=== PATIENT | female | born 1980 | race Caucasian/White ===

== ENCOUNTER 2017-08-15 20:58 | Emergency (ER) | payer MEDICAID ==
[2017-08-15 21:14] VITALS: O2SAT 97
--- NOTE | 2017-08-15 21:46 | CPEKG ---
Heart Rate: 80 RR Interval: 750 P-R Interval: 156 QRSD Interval: 84 QT Interval: 364 QTC Interval: 420 P [place]: 11 QRS [place]: 21 T Wave [place]: 23 EKG Severity - ABNORMAL ECG - EKG Impression: SINUS RHYTHM EKG Impression: ABNORMAL Q SUGGESTS ANTERIOR INFARCT Electronically Signed By: Joanie Martinez 16-Aug-2017 00:06:33
--- NOTE | 2017-08-15 22:28 | EDPHY ---
H & P Stated Complaint: chest pressure, uti symptoms Source: Patient Exam Limitations: No limitations - Personal History LMP (Females 10-55): 1-7 Days Ago - Medical/Surgical History Hx Asthma: No Hx Chronic Respiratory Disease: No Hx Diabetes: Yes Hx Cardiac Disease: No Hx Renal Disease: No Hx Cirrhosis: No Hx Alcoholism: No Hx HIV/AIDS: No Hx Splenectomy or Spleen Trauma: No Other PMH: diabetic - Social History Smoking Status: Never smoked Time Seen by Provider: 08/15/17 21:21 HPI/ROS: HPI: This is a 37-year-old female who presents with Chief Complaint: Multiple complaints Location: sinus, chest, Quality: Pain Duration: 3-7 days Signs and Symptoms: No fever, no nausea, no vomiting, no abdominal pain, no neck stiffness, no headache Timing: Daily Severity: Moderate Context: Patient and her significant other recently moved to [facility] and have been staying in shelters. She presents to the emergency room this evening with multiple complaints including sinus and nasal congestion for the last several days. She complains that she is unable to blow her nose at the areas very dry here. She denies sinus pressure/headache. She also complains of a cough for the last few days that is nonproductive in nature. Denies fever/ chills/chest pain/palpitations. She is concerned because she has been staying in shelters among other people who are sick. And then she also complains of burning with urination for 1-2 days. Denies vaginal bleeding/vaginal discharge. LMP was 1-7 days ago. Modifying Factors: She has not tried any [id number] medications Comment: ROS: see HPI Constitutional: No fever, no chills, no weight loss Eyes: No blurred vision Respiratory: No shortness of breath, + cough Cardiovascular: No chest pain Gastrointestinal: No nausea, no vomiting, no diarrhea Genitourinary: No dysuria Extremities: No myalgias Neurologic: No weakness, no numbness Skin: No rashes Hematologic: No bruising, no bleeding MEDICAL/SURGICAL/SOCIAL HISTORY: Medical history: Pre diabetic. Does not take any regular medications. Surgical history: Denies Social history: Homeless. Recently moved to the area. CONSTITUTIONAL: Extremely well-appearing obese white female, awake and alert, no obvious distress HEENT: Atraumatic and normocephalic, PERRL, EOMI. Tympanic membranes clear. Nares patent without rhinorrhea. External nose on the right side shows a dried area without redness/warmth. + excoriation. Oropharynx clear, no exudate and moist pink mucosa. Airway patent. No lymphadenopathy. No meningismus. Cardiovascular: Normal S1/S2, regular rate, regular rhythm, without murmur rub or gallop. PULMONARY/CHEST: Symmetrical and nontender. Clear to auscultation bilaterally. Good air movement. No accessory muscle usage. ABDOMEN: Soft, nondistended, nontender, no rebound, no guarding, no peritoneal signs, no masses or organomegaly. No CVAT. EXTREMITIES: 2/2 pulses, strength 5/5, no deformities, no clubbing, no cyanosis or edema. NEUROLOGICAL: no focal neuro deficits. GCS 15. SKIN: Warm and dry, no erythema. no rash. Good capillary refill. (Carmen Rosas) Constitutional: Initial Vital Signs Temperature (C) 37.2 C 08/15/17 21:11 Heart Rate 88 08/15/17 21:11 Respiratory Rate 20 08/15/17 21:11 Blood Pressure 137/92 H 08/15/17 21:11 O2 Sat (%) 97 08/15/17 21:11 O2 Delivery Mode Room Air O2 (L/minute) 2 Allergies/Adverse Reactions: Sulfa (Sulfonamide Antibiotics) Allergy (Verified 08/15/17 21:11) Home Medications: Medication Instructions Recorded Cephalexin [Keflex (*)] 500 mg PO BID #14 cap 08/15/17 Medical Decision Making ED Course/Re-evaluation: EKG, labs, urinalysis, chest x-ray ordered Vital signs reviewed and unremarkable. Patient is afebrile without any systemic signs. EKG reviewed by attending and shows no acute ischemic changes/arrhythmia 2259: Chest x-ray reviewed via PACs and shows no opacity/effusion/pneumothorax Urinalysis shows infection; sent for urine culture; p.o. Keflex 500 mg given. Sulfa allergy noted. Reviewed labs and grossly unremarkable; no signs of pyelonephritis/sepsis/acute kidney injury/electrolyte imbalance/pulmonary embolism/acute coronary syndrome Based on patient's history; she would benefit from a sleep study to evaluate for obstructive sleep apnea. (Carmen Rosas) Differential Diagnosis: Differential diagnosis includes but is not limited to upper respiratory infection, sinus disease, nasal dryness, urinary tract infection. (Carmen Rosas) Other Provider: PHYSICIAN DOCUMENTATION: The patient was evaluated and managed by the Physician Inside Sales Account Executive. My co- signature indicates that I have reviewed this chart and I agree with the findings and plan of care as documented. I am the secondary supervising physician. (Adrienne Baum) - Data Points Laboratory Results: Laboratory Results 08/15/17 23:03 08/15/17 23:03 Microbiology Results: MICROBIOLOGY 08/15/17 21:32 Urine,Clean Catch Urine Culture - Preliminary Four [place] Types Medications Given: Discontinued Medications Cephalexin HCl (Keflex) 500 mg PO EDNOW ONE PRN Reason: Protocol Stop: 08/15/17 23:01 Last Admin: 08/15/17 23:18 Dose: 500 mg Departure - Departure Disposition: Home, Routine, Self-Care Clinical Impression: Lower urinary tract infection, Nasal dryness Upper respiratory infection Qualifiers: URI type: unspecified viral URI Qualified Code(s): J06.9 - Acute upper respiratory infection, unspecified Condition: Good Instructions: Urinary Tract Infection in Women (ED) Additional Instructions: Chest x-ray does not show any signs of pneumonia or mass. Your labs are completely unremarkable including no signs of a blood clot. Urinalysis shows that she do have a urinary tract infection; please take all medications as prescribed and drink plenty of fluids. You may take [id number] Mucinex as needed for nasal congestion. You may take [id number] nasal saline drops as needed for nasal dryness. Please follow up with pulmonology to obtain a sleep study test to evaluate for obstructive sleep apnea. Referrals: [facility],. [Clinic] - As per Instructions Darell Mcelroy MD [Medical Doctor] - As per Instructions Prescriptions: Cephalexin [Keflex (*)] 500 mg PO BID #14 cap
[2017-08-15] MEDS ORDERED: CEPHALEXIN 500 MG CAP PO ONE (23:00)
[2017-08-15 23:16] LABS: PLATELET COUNT 293 10^3/uL (150-400)
[2017-08-16 02:01] VITALS: BP 122/52; PULSE 85; RESP 20; TEMP 98.2
== END 2017-08-16 00:39 | disposition home or self-care (01) ==
DX: J06.9 Acute upper respiratory infection, unspecified (principal); N39.0 Urinary tract infection, site not specified; B96.89 Other specified bacterial agents as the cause of diseases classified elsewhere; J34.89 Other specified disorders of nose and nasal sinuses; E11.9 Type 2 diabetes mellitus without complications

== ENCOUNTER 2017-08-18 13:09 | Emergency (ER) | payer MEDICAID ==
[2017-08-18 13:41] VITALS: RESP 16
--- NOTE | 2017-08-18 14:38 | EDPHY ---
H & P Smoking Status: Never smoked Time Seen by Provider: 08/18/17 13:51 HPI/ROS: HPI Suicidal thoughts. 37-year-old female with history of bipolar, PTSD and depression. Here on an M1 hold for suicidal thoughts. She is very familiar to our emergency department and staff. She has been seen and evaluated by [facility]. [facility] is to place her for psychiatric admission when she has been medically cleared. She has a history of diabetes is hypertension and a recent history of urinary tract infection. She is homeless currently. She states that she is feeling more depressed and suicidal. She does not have a plan. ROS: Constitutional: No fever, no chills. No weakness. Eyes: No discharge. No changes in vision. ENT: No sore throat. No nasal congestion or rhinorrhea. Respiratory: No cough. No shortness of breath. Cardiac: No chest pain, no palpitations. Gastrointestinal: No abdominal pain, no vomiting, no diarrhea. Genitourinary: No hematuria. No dysuria or increased frequency with urination. Musculoskeletal: No back pain. No neck pain. No myalgias or arthralgias. Skin: No rashes. Neurological: No headache. No focal weakness or altered sensation. Past medical history: As above and includes diabetes, hypertension, hyperlipidemia, PTSD, morbid obesity, homeless, chronic back pain, noncompliance with medications. Social history: Nonsmoker. Here by herself. As above. No alcohol. Denies IV drugs or street drugs. Physical Exam: General Appearance: Alert, emotionally labile. Obese habitus. This patient is responding to questions appropriately and in full sentences. This patient appears well-hydrated and well-nourished. Eyes: Pupils equal and round no pallor or injection. No lid edema, erythema or injection. Respiratory: There are no retractions, lungs are clear to auscultation with good air movement bilaterally. Cardiovascular: Regular rate and rhythm. No murmur. Gastrointestinal: Abdomen is soft and nontender, no masses, bowel sounds normal. No focal tenderness at McBurney's point. No Barahona sign. Neurological: Motor sensory function is grossly intact. Cranial nerves are normal. Gait is normal. Skin: Warm and dry, no rashes. Musculoskeletal: Neck is supple and nontender. Extremities are symmetrical. All joints range without pain or impingement. Psychiatric: No agitation. No depression. Database: EKG: Imaging: Procedures: Emergency department course: Appropriate blood work and urinalysis will be obtained for medical clearance. Vital signs reviewed. She is moderately hypertensive. Vital signs otherwise normal. She is afebrile. Behavioral Health to be notified once the patient is medically cleared. 4:00 p.m., patient's blood work and urine studies reviewed. She is med cleared at this time for placement for psychiatric admission. EPS is aware. 8:30 p.m., the patient's remaining emergency department course under my care has been uneventful. She is awaiting admission to a psychiatric facility. Destination unknown at this time. Care turned over to Dr. Priya Fernández at 9:00 p.m.. Her remaining emergency department course under my care has been uneventful. Differential Diagnosis: The differential diagnosis on this patient includes but is not limited to situational depression, chronic homelessness, suicidal ideation. This represents a partial list of diagnoses considered. These considerations are based on history, physical exam, past history, reassessment and diagnostic testing. (Joanie Martinez) Constitutional: Initial Vital Signs Temperature (C) 36.8 C 08/18/17 13:28 Heart Rate 79 08/18/17 13:28 Respiratory Rate 16 08/18/17 13:28 Blood Pressure 154/74 H 08/18/17 13:28 O2 Sat (%) 98 08/18/17 13:28 O2 Delivery Mode Room Air Allergies/Adverse Reactions: Sulfa (Sulfonamide Antibiotics) Allergy (Verified 08/15/17 21:11) Home Medications: Medication Instructions Recorded Cephalexin [Keflex (*)] 500 mg PO BID #14 cap 08/15/17 Topiramate [Topamax 100MG (*)] 100 mg PO BID #10 tab 08/19/17 Medical Decision Making ED Course/Re-evaluation: 0522AM: Patient has been sleeping. On M1 hold. Pending placement. Patient signed over to Dr. Segura at 7am Shift Change. Pending Placement. ( Amando Tabor) Other Provider: I assumed care of this patient from Dr. Yudith Martinez at 9:00 p.m.. She has been medically cleared, seen by Psychiatry, and we are awaiting placement in inpatient for suicidal ideation. Care will be assumed by Dr. Amando Tabor at 11:00 p.m.. (Priya Fernández) Care assumed at 7:00 a.m. with inpatient psychiatric placement pending for depression and suicidal ideation. 1244: The patient will be transferred to [facility] for inpatient psychiatric hospital bed not available at this facility, in stable condition; accepting physician is Dr. Rowan. (Nish Segura) - Data Points Laboratory Results: Laboratory Results 08/18/17 14:49 08/18/17 14:49 Medications Given: Discontinued Medications Ibuprofen (Motrin) 600 mg PO EDNOW ONE Stop: 08/19/17 10:16 Last Admin: 08/19/17 10:21 Dose: 600 mg Departure - Departure Disposition: Other Psych, Not Adriana Clinical Impression: Suicidal ideation Depression Qualifiers: Depression Type: major depressive disorder Major depression recurrence: single episode Active/Remission status: currently active Major depression episode severity: mild Qualified Code(s): F32.0 - Major depressive disorder, single episode, mild Condition: Good Referrals: NONE *PRIMARY CARE P,. [Primary Care Provider] - As per Instructions Prescriptions: Topiramate [Topamax 100MG (*)] 100 mg PO BID #10 tab
[2017-08-18 14:59] LABS: PLATELET COUNT 288 10^3/uL (150-400)
[2017-08-18 22:55] VITALS: O2SAT 97
[2017-08-19] MEDS ORDERED: TOPIRAMATE 100 MG TAB PO SCH
[2017-08-19 08:23] VITALS: BP 107/72; PULSE 77; TEMP 98.4
[2017-08-19] MEDS ORDERED: IBUPROFEN 200 MG TAB PO ONE (10:15)
== END 2017-08-19 13:39 ==
LOC: EDUNIT#
DX: R45.851 Suicidal ideations (principal); F32.0 Major depressive disorder, single episode, mild; E11.9 Type 2 diabetes mellitus without complications; I10 Essential (primary) hypertension
CPT/HCPCS: 80305; G0480

== ENCOUNTER 2017-08-27 18:09 | Emergency (ER) | payer MEDICAID ==
[2017-08-27] MEDS ORDERED: NS 1,000 ML IV ONE (18:15)
[2017-08-27] MEDS ORDERED: IBUPROFEN 800 MG TAB PO ONE (18:15)
[2017-08-27] MEDS ORDERED: GABAPENTIN 300 MG CAP PO ONE (18:15)
--- NOTE | 2017-08-27 18:24 | EDPHY ---
H & P HPI/ROS: HPI CHIEF COMPLAINT: Headache, off medications HISTORY OF PRESENT ILLNESS: This patient 37-year-old female, morbidly obese, history of hypertension, migraine headaches and seizures, bipolar disorder. She just was recently released from inpatient psychiatric care and was getting dinner tonight at a local senior living however the senior living was closed tonight for overnight stay. Patient ate dinner and then called 911 for global headache. She reports that she developed this headache much earlier today. She attributes the headache to a migraine that she gets when she has offer for seizure medications. She is supposed to be taking gabapentin. She reports to me that she has been off for gabapentin since Friday approximately 5 days. She states when she is off of her gabapentin she gets a global migraine headache. Past Medical History: Hypertension, bipolar disorder, migraine headaches, seizures Past Surgical History: No recent surgery Social History: Homeless denies illicit drugs alcohol tobacco. Family History: ROS REVIEW OF SYSTEMS: A comprehensive 10 point review of systems is otherwise negative aside from elements mentioned in the history of present illness. Exam Constitutional obese, triage nursing summary reviewed, vital signs reviewed, awake/alert. Eyes normal conjunctivae and sclera, EOMI, PERRLA. HENT normal inspection, atraumatic, moist mucus membranes, no epistaxis, neck supple/ no meningismus, no raccoon eyes. Respiratory clear to auscultation bilaterally, normal breath sounds, no respiratory distress, no wheezing. Cardiovascular rate normal, regular rhythm, no murmur, no edema, distal pulses normal. Gastrointestinal soft, non-tender, no rebound, no guarding, normal bowel sounds, no distension, no pulsatile mass. Genitourinary no CVA tenderness. Musculoskeletal no midline vertebral tenderness, full range of motion, no calf swelling, no tenderness of extremities, no meningismus, good pulses, neurovascularly intact. Skin pink, warm, & dry, no rash, skin atraumatic. Neurologic nonfocal normal neurological exam, awake, alert and oriented x 3, AAOx3, moves all 4 extremities equally, motor intact, sensory intact, CN II-XII intact, normal cerebellar, normal vision, normal speech. Psychiatric normal mood/affect. Heme/Lymph/Immune no lymphadenopathy. Differential Diagnosis: Includes but is not limited to in a particular order, migraine headache, tension headache, cluster headache, doubt intracranial bleed given history and clinical exam, infection, need for medications Medical Decision Making: Plan for this patient IV establishment blood draw she is diabetic will check her electrolytes and glucose, CT scan of her head without contrast for headache. Will prescribe her gabapentin ibuprofen for headache control at this time. Will re-evaluate. Her neurological exam is unremarkable. Re-evaluation: CT scan of the head without IV contrast for headache this is negative for acute disease process specifically no bleed. Called to me by Dr. May. 2036: Did re-evaluate this patient this time patient is sleeping. Has no complaints. Feels better in terms of her headache. Her CT scan is unremarkable blood work is normal. She is not hyperglycemic. Electrolytes are appropriate. She is comfortable from being discharged from the emergency room. She does state that she has her medications at a local [facility] I do recommend that she gets these filled tomorrow. Return precautions given. She understands return emergency room if she develops worsening symptoms questions or concerns. Of note here in the emergency room no meningeal signs no stiff neck. Do not feel that she needs any further imaging or lumbar puncture. Source: Patient, EMS - Medical/Surgical History Hx Asthma: No Hx Chronic Respiratory Disease: No Hx Diabetes: Yes Hx Cardiac Disease: No Hx Renal Disease: No Hx Cirrhosis: No Hx Alcoholism: No Hx HIV/AIDS: No Hx Splenectomy or Spleen Trauma: No Other PMH: diabetic, gurd, chronic back issues, bipolar, PTSD, Depression, HTN, high cholesterol, Morbidly Obese. - Social History Smoking Status: Never smoked Constitutional: Initial Vital Signs Temperature (C) 36.5 C 08/27/17 18:37 Heart Rate 72 08/27/17 18:37 Respiratory Rate 16 08/27/17 18:37 Blood Pressure 136/91 H 08/27/17 18:37 O2 Sat (%) 100 08/27/17 18:37 O2 Delivery Mode Room Air Allergies/Adverse Reactions: Sulfa (Sulfonamide Antibiotics) Allergy (Verified 08/15/17 21:11) Home Medications: Medication Instructions Recorded Cephalexin [Keflex (*)] 500 mg PO BID #14 cap 08/15/17 Topiramate [Topamax 100MG (*)] 100 mg PO BID #10 tab 08/19/17 Medical Decision Making - Diagnostics Imaging Results: Imaging Impressions Head CT 08/27/17 18:15 Impression: 1. Chronic inflammatory changes in the left maxillary sinus, without air-fluid level. 2. No source for headache identified. Results called and discussed with Amando Tabor MD, at 08/27/2017 18:46 General information for patients regarding this examination can be found at [employer] [email or web address]. If you have questions or comments about this report, please contact me at (hospital) or [phone] (cell). - Data Points Laboratory Results: Laboratory Results 08/27/17 19:25 08/27/17 19:25 08/27/17 08/27/17 19:25 19:25 WBC 8.56 10^3/uL 10^3/uL (3.80-9.50) RBC 4.29 10^6/uL 10^6/uL (4.18-5.33) Hgb 11.8 g/dL L g/dL (12.6-16.3) Hct 37.3 % L % (38.0-47.0) MCV 86.9 fL fL (81.5-99.8) MCH 27.5 pg L pg (27.9-34.1) MCHC 31.6 g/dL L g/dL (32.4-36.7) RDW 14.8 % % (11.5-15.2) Plt Count 281 10^3/uL 10^3/uL (150-400) MPV 9.8 fL fL (8.7-11.7) Neut % (Auto) 55.2 % % (39.3-74.2) Lymph % (Auto) 33.8 % % (15.0-45.0) Parke % (Auto) 6.7 % % (4.5-13.0) Eos % (Auto) 3.2 % % (0.6-7.6) Baso % (Auto) 0.7 % % (0.3-1.7) Nucleat RBC Rel Count 0.0 % % (0.0-0.2) Absolute Neuts (auto) 4.74 10^3/uL 10^3/uL (1.70-6.50) Absolute Lymphs (auto) 2.89 10^3/uL 10^3/uL (1.00-3.00) Absolute Monos (auto) 0.57 10^3/uL 10^3/uL (0.30-0.80) Absolute Eos (auto) 0.27 10^3/uL 10^3/uL (0.03-0.40) Absolute Basos (auto) 0.06 10^3/uL 10^3/uL (0.02-0.10) Absolute Nucleated RBC 0.00 10^3/uL 10^3/uL (0-0.01) Immature Gran % 0.4 % % (0.0-1.1) Immature Gran # 0.03 10^3/uL 10^3/uL (0.00-0.10) Sodium 138 mEq/L mEq/L (134-144) Potassium 4.0 mEq/L mEq/L (3.5-5.2) Chloride 103 mEq/L mEq/L (97-110) Carbon Dioxide 26 mEq/l mEq/l (22-31) Anion Gap 9 mEq/L mEq/L (8-16) BUN 14 mg/dL mg/dL (7-23) Creatinine 0.7 mg/dL mg/dL (0.6-1.0) Estimated GFR > 60 Glucose 80 mg/dL mg/dL (70-100) Calcium 9.1 mg/dL mg/dL (8.5-10.4) Medications Given: Discontinued Medications Gabapentin (Neurontin) 300 mg PO EDNOW ONE Stop: 08/27/17 18:16 Last Admin: 08/27/17 18:44 Dose: 300 mg Sodium Chloride (Ns) 1,000 mls @ 0 mls/hr IV ONCE ONE PRN Reason: Wide Open Stop: 08/27/17 18:16 Last Admin: 08/27/17 18:44 Dose: 1,000 mls Ibuprofen (Motrin) 800 mg PO EDNOW ONE Stop: 08/27/17 18:16 Last Admin: 08/27/17 18:44 Dose: 800 mg Departure - Departure Disposition: Home, Routine, Self-Care Clinical Impression: Headache Qualifiers: Headache type: unspecified Headache chronicity pattern: acute headache Intractability: intractable Qualified Code(s): R51 - Headache Condition: Good Instructions: Acute Headache (ED) Additional Instructions: 1.Return emergency room if develops worsening symptoms questions or concerns. Referrals: Patient,NotPresent [Unknown] - As per Instructions
[2017-08-27 18:39] VITALS: RESP 16; TEMP 97.7
[2017-08-27 19:34] LABS: % IMMATURE GRANULYOCYTES 0.4 % (0.0-1.1); ABSOLUTE IMMATURE GRANULOCYTES 0.03 10^3/uL (0.00-0.10); ADD DIFF? NO; ADD MORPH? NO; ADD SCAN? NO; ATYPICAL LYMPHOCYTE FLAG 0 (0-99); FRAGMENT RBC FLAG 0 (0-99); HEMATOCRIT 37.3 % (38.0-47.0); HEMOGLOBIN 11.8 g/dL (12.6-16.3); LEFT SHIFT FLG 0 (0-99); LIPEMIA HEMOLYSIS FLAG 80 (0-99); MEAN CELL HEMOGLOBIN 27.5 pg (27.9-34.1); MEAN CELL HEMOGLOBIN CONCENTR. 31.6 g/dL (32.4-36.7); MEAN CELL VOLUME 86.9 fL (81.5-99.8); MEAN PLATELET VOLUME 9.8 fL (8.7-11.7); PLATELET CLUMPS FLAG 0 (0-99); PLATELET COUNT 281 10^3/uL (150-400); RED BLOOD CELL COUNT 4.29 10^6/uL (4.18-5.33); RED CELL DISTRIBUTION WIDTH 14.8 % (11.5-15.2)
[2017-08-27 19:46] LABS: ANION GAP 9 mEq/L (8-16); CALCIUM 9.1 mg/dL (8.5-10.4); CARBON DIOXIDE 26 mEq/l (22-31); CHLORIDE 103 mEq/L (97-110); CREATININE 0.7 mg/dL (0.6-1.0); GLOMERULAR FILTRATION RATE > 60; GLUCOSE 80 mg/dL (70-100); SODIUM 138 mEq/L (134-144)
[2017-08-27 20:48] VITALS: BP 147/85; PULSE 76; O2SAT 98
== END 2017-08-27 20:48 | disposition home or self-care (01) ==
LOC: EDUNIT#
DX: R51 Headache (principal); I10 Essential (primary) hypertension; E11.9 Type 2 diabetes mellitus without complications

== ENCOUNTER 2017-09-07 19:55 | Emergency (ER) | payer MEDICAID ==
--- NOTE | 2017-09-07 20:01 | EDPHY ---
H & P Time Seen by Provider: 09/07/17 20:00 HPI/ROS: CHIEF COMPLAINT: Hemorrhoid HISTORY OF PRESENT ILLNESS: This patient is an obese 37 y/o female arriving via EMS for evaluation of painful hemorrhoids. Onset a painful and enlarged hemorrhoid 2 days ago, gradually increasing since then. She endorses constipation 3 days ago which has since resolved. No abdominal pain. She has no further complaints at this time. REVIEW OF SYSTEMS: A 10 point review of systems was performed and is negative with the exception of the elements mentioned in the history of present illness. Past Medical/Surgical History: 1.Hypertension 2. Diabetes mellitus 3. Bipolar disorder 4. Migraine headaches 5. Seizures 6. PTSD Social History: Currently staying at a assisted. Recently moved to [place]. Significant other at bedside. Denies illicit drug, alcohol, tobacco use. Smoking Status: Never smoked Physical Exam: General Appearance: Alert, pleasant Eyes: Pupils equal and round ENT, Mouth: Mucous membranes moist Neck: Normal inspection Respiratory: Lungs are clear to auscultation Cardiovascular: Regular rate and rhythm Gastrointestinal: Abdomen is soft and non-tender Rectal: Thrombosed hemorrhoid present Neurological: A&O, nonfocal, normal gait Skin: Warm and dry Extremities: Normal inspection Psychiatric: Mood and affect normal Constitutional: Initial Vital Signs Temperature (C) 37.2 C 09/07/17 20:00 Heart Rate 85 09/07/17 20:00 Respiratory Rate 22 H 09/07/17 20:00 Blood Pressure 135/79 H 09/07/17 20:00 O2 Sat (%) 97 09/07/17 20:00 O2 Delivery Mode Room Air Allergies/Adverse Reactions: Sulfa (Sulfonamide Antibiotics) Allergy (Verified 08/15/17 21:11) Home Medications: Medication Instructions Recorded Cephalexin [Keflex (*)] 500 mg PO BID #14 cap 08/15/17 Topiramate [Topamax 100MG (*)] 100 mg PO BID #10 tab 08/19/17 Medical Decision Making Procedures: Procedure: Incision and Drainage of thrombosed hemorrhoid. The patient's hemorrhoid was located on the rectum. Risks, benefits, alternatives discussed with the patient and consent obtained. The area was prepped and draped in sterile fashion. The patient received local anesthesia with 1% lidocaine with epinephrine. The hemorrhoid was incised with a #11 blade and blood clot was expressed. The patient tolerated the procedure well. The procedure was performed by myself. ED Course/Re-evaluation: 37 y/o female presents with 2 day history of rectal pain and hemorrhoid sensation. Rectal exam reveals thrombosed hemorrhoid. Discussed treatment options with patient including conservative home management vs. I&D. Patient prefers to proceed with I&D. See procedure note above. The patient tolerated the procedure well. Plan to d/c in good condition. Follow up and return precautions discussed. The patient is comfortable with this plan. Departure - Departure Disposition: Home, Routine, Self-Care Clinical Impression: Hemorrhoid Qualifiers: Hemorrhoid type: perianal venous thrombosis Qualified Code(s): K64.5 - Perianal venous thrombosis Condition: Good Instructions: Hemorrhoids (ED) Additional Instructions: 1. Sit in a warm bathtub three times per day until your pain resolves. 2. You may take Tylenol or Ibuprofen as directed below as needed for pain relief. 3. Return to the emergency department for worsening pain, drainage, fever, or other worsening of condition. Adult Pain & Fever Control: We recommend Acetaminophen (Tylenol) and Ibuprofen (Motrin,Advil) for pain and fever control. When fever is high or pain severe, both drugs can be used at the same time, but at different intervals. Please note the time differences. Your dose is: Acetaminophen 650mg every 4 to 6 hours Ibuprofen 600mg every 6-8 hours with food Note: do not take Acetaminophen with Hydrocodone (Vicodin, Lortab) or Oxycodone (Percocet). These medications also contain Acetaminophen. No more than 3000mg of Acetaminophen should be taken in 24 hours (for an adult). Referrals: [facility],. [Clinic] - As per Instructions Report Scribed for: Trina Ortiz Report Scribed by: Sun Last Date of Report: 09/07/17 Time of Report: 20:05 Physician Review and Approval Statement: 09/07/17 20:05 Portions of this note were transcribed by a medical economics consultant. I personally performed a history, physical exam, medical decision making, and confirmed accuracy of information the transcribed note.
[2017-09-07 20:03] VITALS: TEMP 99
[2017-09-07 20:47] VITALS: BP 119/79; PULSE 80; RESP 19; O2SAT 94
== END 2017-09-07 20:54 | disposition home or self-care (01) ==
LOC: EDUNIT#
PROC: 069Y0ZZ Drainage of Lower Vein, Open Approach (ICD-10-PCS; principal; 2017-09-07)
DX: K64.5 Perianal venous thrombosis (principal); I10 Essential (primary) hypertension; E11.9 Type 2 diabetes mellitus without complications